=== PATIENT | male | born 1980 ===

== ENCOUNTER 2022-08-21 20:50 | Emergency (ER) | payer BC ==
[2022-08-21] MEDS ORDERED: Lactated Ringers 1,000 ML IV ONE (21:02)
[2022-08-21] MEDS ORDERED: Tranexamic Acid 1,000 MG/10 ML Vial ONE (21:02)
[2022-08-21] MEDS ORDERED: Sodium Chloride 0.9% 10 ML Syringe FLUSH PRN (21:02)
[2022-08-21] MEDS ORDERED: Sodium Chloride 0.9% 2.5 ML Syringe FLUSH PRN (21:02)
[2022-08-21 21:13] LABS: APPEARANCE,URINE CLEAR; BILIRUBIN,URINE NEGATIVE (NEGATIVE); COLOR,URINE YELLOW; GLUCOSE,URINE NEGATIVE (NEGATIVE); KETONES,URINE NEGATIVE (NEGATIVE); LEUKOCYTE ESTERASE,URINE NEGATIVE (NEGATIVE); NITRITE,URINE NEGATIVE (NEGATIVE); OCCULT BLOOD,URINE TRACE-INTACT (NEGATIVE); PROTEIN,URINE 30 mg/dL (NEGATIVE); UROBILINOGEN,URINE 0.2 EU/dL (<2.0)
[2022-08-21] MEDS ORDERED: fentaNYL 50 MCG/ML SDV ONE (21:14)
[2022-08-21 21:16] LABS: BASOPHILS PERCENT AUTO 0.3 % (0.0-1.5); EOSINOPHILS ABSOLUTE AUTO 0.1 K/uL (0.0-0.7); HEMATOCRIT 41.4 % (38.0-50.0); HEMOGLOBIN 14.2 g/dL (13.0-17.0); LYMPHOCYTES ABSOLUTE AUTO 3.9 K/uL (0.6-2.4); LYMPHOCYTES PERCENT AUTO 41.8 % (16.0-40.0); MEAN CORPUSCULAR HEMOGLOBIN 32.6 pg (27.0-32.0); MEAN CORPUSCULAR HGB CONC 34.3 g/dL (31.0-37.0); MEAN CORPUSCULAR VOLUME 95.2 fL (80.0-98.0); MONOCYTES ABSOLUTE AUTO 0.7 K/uL (0.0-0.8); MONOCYTES PERCENT AUTO 7.3 % (0.0-15.0); NEUTROPHILS ABSOLUTE AUTO 4.6 K/uL (1.4-5.7); NEUTROPHILS PERCENT AUTO 49.6 % (48.0-80.0); NRBC ABSOLUTE 0 K/uL; PLATELET COUNT,PLT 270 K/uL (150-400); RED BLOOD CELL COUNT 4.35 M/uL (4.50-5.90)
[2022-08-21] MEDS ORDERED: Sodium Chloride 0.9% 100 ML IV STA (21:18)
[2022-08-21] MEDS ORDERED: Tranexamic Acid 1,000 MG in Sodium Chloride 0.9% 100 ML IV STA (21:19)
[2022-08-21 21:22] LABS: AMPHETAMINES SCREEN, URINE NEGATIVE (CUTOFF=500); BACTERIA,URINE RARE (NEGATIVE); BARBITURATE SCREEN,URINE NEGATIVE (CUTOFF=200); BENZODIAZEPINES SCREEN,URINE NEGATIVE (CUTOFF=150); BUPRENORPHINE SCREEN,URINE NEGATIVE (CUTOFF=10); EPITHELIAL CELLS,URINE RARE (NONE-FEW); METHADONE SCREEN, URINE NEGATIVE (CUTOFF=200); METHAMPHETAMINES SCREEN, URINE NEGATIVE (CUTOFF=500); OXYCODONE SCREEN,URINE NEGATIVE (CUT0FF=100); PCP SCREEN,URINE NEGATIVE (CUTOFF=25); PROPOXYPHENE SCREEN,URINE NEGATIVE (CUTOFF=300); RBC,URINE 0-5 (0-2/HPF); SQUAMOUS EPITHELIAL CELLS,UR RARE; THC SCREEN,URINE 20 NG/ML NEGATIVE (CUTOFF=50); WBC,URINE NONE SEEN (0-5/HPF)
[2022-08-21 21:23] LABS: INR 1.07 (0.86-1.11)
[2022-08-21 21:32] LABS: A/G RATIO 0.9 (0.9-1.6); ALANINE AMINOTRANSFERASE,ALT 91 IU/L (14-63); ALBUMIN 3.8 g/dL (3.4-5.0); ALKALINE PHOSPHATASE 77 U/L (46-116); ASPARTATE AMNIOTRANSFERASE,AST 54 IU/L (15-37); BILIRUBIN TOTAL 0.2 mg/dL (0.2-1.0); BLOOD UREA NITROGEN,BUN 12 mg/dL (7.0-18.0); CARBON DIOXIDE,CO2 17.2 mmol/L (21.0-32.0); CHLORIDE,CL 103 mmol/L (98-107); CREATININE 1.2 mg/dL (0.8-1.3); ETHANOL BLOOD MEDICAL 196 mg/dL; GLUCOSE RANDOM 193 mg/dL (74-106); PROTEIN TOTAL,TP 7.9 g/dL (6.4-8.2); SODIUM,NA 137 mmol/L (136-148)
[2022-08-21 21:37] LABS: ESTIMATED GFR 76 mL/min (>60)
[2022-08-21 21:43] LABS: LACTIC ACID 3.4 mmol/L (0.4-2.0)
[2022-08-21] MEDS ORDERED: propofoL 100 ML ONE (21:47)
[2022-08-21] MEDS ORDERED: Iopamidol 755 MG/ML 500 ML Multipack Bottle IVPUSH ONE (21:51)
[2022-08-21] MEDS ORDERED: fentaNYL 50 MCG/ML SDV IVPUSH STA (22:07)
[2022-08-21] MEDS ORDERED: Propofol 200 MG/20 ML SDV IVPUSH STA (22:08)
[2022-08-21] MEDS ORDERED: propofoL 100 ML IV SCH (22:15)
[2022-08-21] MEDS ORDERED: Piperacillin/Tazobactam 3.375 GM in Sodium Chloride 0.9% 100 ML IV ONE (22:17)
[2022-08-21] MEDS ORDERED: Diphtheria,Pertussis(Acell),Tetanus Vaccine 0.5 ML Syringe IM ONE (22:18)
== END 2022-08-21 22:50 ==
LOC: MW.ED 20:50
DX: S06.6XAA Traumatic subarachnoid hemorrhage with loss of consciousness status unknown, initial encounter (principal); W19.XXXA Unspecified fall, initial encounter; Y92.39 Other specified sports and athletic area as the place of occurrence of the external cause
CPT/HCPCS: 31500; 36415; 43752; 51702; 70450; 71045; 71260; 72125; 72128; 72131; 72170; 72193; 74177; 80053; 80305; 80307; 81001; 83605; 85025; 85610; 86850; 86900; 86901; 96361; 96374; 99291; J2704; J3010; J3490; J7120; Q9967